=== PATIENT | female | born 1965 | race Two or more races ===

== ENCOUNTER 2016-11-18 15:04 | Emergency (ER) | payer BC ==
[~2016-11-18] VITALS: Ht 160 cm; Wt 98.9 kg
--- NOTE | 2016-11-18 15:06 | NUR ---
AAOX3, BIB [facility] FROM HOME WITH [employer] OFFICERS,VERBALIZED SI BY PULLING OUT HER DIALYSIS CATHETER IN HER RIGHT UPPER CHEST. SKIN IS WARM AND DRY. RESP IS EVEN AND UNLABORED WITH NAD NOTED. DR KHAN AT BS FOR EVAL.
--- NOTE | 2016-11-18 15:15 | NUR ---
DR KHAN VERBALLY ORDERED ACCUCHECK.
[2016-11-18 15:26] LABS: BASOPHILS # (AUTO) 0.1 /CMM (0.0-0.2); BASOPHILS % (AUTO) 0.9 % (0.0-2.0); EOSINOPHILS # (AUTO) 0.3 /CMM (0.0-0.7); EOSINOPHILS % (AUTO) 3.4 % (0.0-6.0); HEMATOCRIT 22 % (33-45); HEMOGLOBIN 7.4 g/dL (11.5-14.8); LYMPHOCYTES # (AUTO) 1.6 /CMM (0.8-4.8); LYMPHOCYTES % (AUTO) 17.1 % (20.0-44.0); MEAN CORPUSCULAR HEMOGLOBIN 29 PG (26.0-33.0); MEAN CORPUSCULAR HGB CONC 33 g/dl (31.0-36.0); MEAN CORPUSCULAR VOLUME 88 fL (82-100); MONOCYTES # (AUTO) 0.8 /CMM (0.1-1.30); MONOCYTES % (AUTO) 8.8 % (2.0-12.0); NEUTROPHILS # (AUTO) 6.7 /CMM (1.8-8.9); NEUTROPHILS % (AUTO) 69.8 % (43.0-81.0); PLATELET COUNT (AUTO) 671 /CMM (150-450); RDW COEFFICIENT OF VARIATION 13.8 (11.5-15.0); RED BLOOD CELL COUNT(AUTO) 2.54 MIL/uL (4.0-5.2); WHITE BLOOD COUNT (AUTO) 9.5 K/uL (4.3-11.0)
[2016-11-18 15:37] LABS: APPEARANCE,URINE Clear (CLEAR); BILIRUBIN,URINE Negative (NEGATIVE); BLOOD, URINE Small Ery/uL (NEGATIVE); COLOR,URINE Yellow (YELLOW); KETONES,URINE Negative (NEGATIVE); LEUKOCYTE ESTERASE ,URINE Negative (NEGATIVE); NITRITE, URINE Negative (NEGATIVE); PROTEIN,URINE >=300 mg/dl (NEGATIVE); UGLUCOSE Negative (NEGATIVE); UROBILINOGEN,URINE 0.2 EU/dL (0.2)
[2016-11-18 15:39] LABS: MAGNESIUM 1.9 mg/dL (1.8-2.4); PHOSPHORUS 3.6 mg/dL (2.5-4.9)
[2016-11-18 15:43] LABS: ACETAMINOPHEN 0 ug/ml (10-30); ALANINE AMINOTRANSFERASE 25 U/L (12-78); ALBUMIN 1.9 g/dL (3.4-5.0); ALCOHOL, BLOOD < 3 mg/dL (0-0); ALKALINE PHOSPHATASE 108 U/L (46-116); ASPARTATE AMINOTRANSFERASE 32 U/L (15-37); BILIRUBIN,DIRECT 0.1 mg/dL (0.0-0.2); BILIRUBIN,TOTAL 0.2 mg/dL (0.2-1.0); CALCIUM, SERUM 8.1 mg/dL (8.5-10.1); CARBON DIOXIDE 31 mmol/L (21-32); CHLORIDE 98 mmol/L (98-107); CREATININE 3.4 mg/dL (0.6-1.3); GFR 14 mL/min (>60); GLUCOSE 110 mg/dL (74-106); POTASSIUM 3.6 mmol/L (3.5-5.1); SODIUM SERUM 134 mmol/L (136-145); TOTAL PROTEIN, SERUM 6.3 g/dL (6.4-8.2)
[2016-11-18 15:52] LABS: CANNABINOID, URINE POSITIVE (NEGATIVE); PHENCYCLIDINE SCREEN,URINE NEGATIVE (NEGATIVE)
[2016-11-18 15:57] LABS: ADD URINE CULTURE NO; BACTERIA,URINE Few /HPF (None Seen); SQUAMOUS EPITHELIAL CELL,UR Few /HPF (None Seen)
[2016-11-18 16:01] LABS: UREA NITROGEN, BLOOD 27 mg/dL (7-18)
--- NOTE | 2016-11-18 16:39 | NUR ---
CALLED DIETARY FOR FOOD TRAY. WILL SERVE AROUND 1700.
[2016-11-18] MEDS ORDERED: [UNRECOGNIZED DRUG - CODE] IV (18:49)
--- NOTE | 2016-11-18 19:34 | NUR ---
Patient discharged to home in stable condition. Written and verbal after care instructions given. Patient verbalizes understanding of instruction AND RX. PT LEFT VIA WC. PT'S IS DRIVING PT HOME. VSS
[2016-11-18 19:35] VITALS: BP 144/75
== END 2016-11-18 19:30 | disposition home or self-care (01) ==
LOC: ER 15:07
DX: R45.851 Suicidal ideations (principal); E11.22 Type 2 diabetes mellitus with diabetic chronic kidney disease; F32.9 Major depressive disorder, single episode, unspecified; F41.9 Anxiety disorder, unspecified; I12.0 Hypertensive chronic kidney disease with stage 5 chronic kidney disease or end stage renal disease; N18.6 End stage renal disease; F12.10 Cannabis abuse, uncomplicated; D64.9 Anemia, unspecified; Z99.2 Dependence on renal dialysis
CPT/HCPCS: 36415; 80048; 80076; 80305; 80329; 81001; 82962; 83735; 84100; 85025; 99284; A4606; G0480 ×2; Z7610; 81000-TC; G6039-TC

== ENCOUNTER 2017-08-06 10:06 | Emergency (ER) | payer BC ==
[~2017-08-06] VITALS: Ht 162.6 cm; Wt 75.7 kg
[~2017-08-06 10:06] MED LIST: [UNRECOGNIZED DRUG - CODE] IV
[2017-08-06] MEDS ORDERED: METOPROLOL TARTRATE 50 MG TABLET PO ONE (10:30)
[2017-08-06] MEDS ORDERED: AMLODIPINE BESYLATE 5 MG TABLET PO ONE (10:30)
[2017-08-06] MEDS ORDERED: AMLODIPINE BESYLATE 5 MG TABLET ONE (10:39)
[2017-08-06] MEDS ORDERED: METOPROLOL TARTRATE 25 MG TABLET ONE (10:39)
[2017-08-06] MEDS ORDERED: ACETAMINOPHEN W/ CODEINE#3 1 EA TABLET ONE (10:39)
[2017-08-06] MEDS ORDERED: ONDANSETRON 4 MG TAB.RAPDIS ONE (10:40)
[2017-08-06] MEDS ORDERED: METOPROLOL TARTRATE 50 MG TABLET ONE (10:42)
[2017-08-06] MEDS: hydrALAZINE HCL 10 MG TABLET PO ONE ×2 (10:48→10:49)
[2017-08-06 10:49] VITALS: BP 205/112
[2017-08-06] MEDS ORDERED: hydrALAZINE HCL 25 MG TABLET PO ONE (11:00)
[2017-08-06] MEDS ORDERED: ACETAMINOPHEN W/ CODEINE#3 1 EA TABLET PO ONE (11:00)
[2017-08-06] MEDS ORDERED: ONDANSETRON 4 MG TAB.RAPDIS PO ONE (11:00)
== END 2017-08-06 11:16 | disposition home or self-care (01) ==
LOC: ER 10:07
DX: M54.9 Dorsalgia, unspecified (principal); G89.29 Other chronic pain; E11.22 Type 2 diabetes mellitus with diabetic chronic kidney disease; F32.9 Major depressive disorder, single episode, unspecified; I12.0 Hypertensive chronic kidney disease with stage 5 chronic kidney disease or end stage renal disease; N18.6 End stage renal disease; Z99.2 Dependence on renal dialysis
CPT/HCPCS: 99284; A4606; Q0162; Z7610